=== PATIENT | female | born 1950 | race Caucasian/White ===

== ENCOUNTER → 2017-03-09 | Outpatient (CLI) | payer MEDICARE | END | disposition home or self-care (01) | LOC: RAD 10:33 | DX: Z13.820 Encounter for screening for osteoporosis (principal); M85.80 Other specified disorders of bone density and structure, unspecified site; N95.9 Unspecified menopausal and perimenopausal disorder ==

== ENCOUNTER → 2019-07-04 | Outpatient (CLI) | payer MEDICARE ==
[2019-07-04 10:46] LABS: BASO % 0.6 % (0.0-1.0); EOS # 0.1 10*3/uL (0.0-0.4); EOS % 1.7 % (1.0-4.0); HEMATOCRIT 45.5 % (37.0-47.0); HEMOGLOBIN 15.1 g/dl (12.0-16.0); LYMPH # 1.8 10*3/uL (1.3-4.4); LYMPH % 24.6 % (27.0-41.0); MEAN CELL VOLUME 90.5 fl (81.0-99.0); MEAN CORPUSCULAR HGB CONC 33.2 g/dl (33.0-37.0); MEAN PLATELET VOLUME 8.2 fl (9.6-12.3); MONO # 0.5 10*3/uL (0.1-1.0); MONO % 6.4 % (3.0-9.0); NEUT # 4.7 10*3/uL (2.3-7.9); NEUT % 66.3 % (47.0-73.0); PLATELET COUNT AUTOMATED 336 10*3/uL (130-400); RED BLOOD COUNT 5.03 10*6/uL (4.10-5.10); RED CELL DISTRI WIDTH 13.1 % (0-14.5); WHITE BLOOD COUNT 7.2 10*3/uL (4.8-10.8)
[2019-07-04 11:12] LABS: ALBUMIN 3.9 gm/dl (3.1-4.5); BUN 13 mg/dl (7-24); CHLORIDE 108 mmol/L (98-107); CHOLESTEROL 219 mg/dL (<200); CREATININE 1.04 mg/dL (0.55-1.02); HDL CHOLESTEROL 60 mg/dl (40-60); LDL CHOLESTEROL 130 mg/dL (9-159); POTASSIUM 4.2 mmol/L (3.5-5.1); SGOT/AST 31 IU/L (3-35); SGPT/ALT 33 U/L (12-78); SODIUM 139 mmol/L (136-145); TOTAL PROTEIN 7.8 gm/dL (6.4-8.2); TRIGLYCERIDES 145 mg/dl (<150); VLDL CHOLESTEROL 29 mg/dL (6-40)
[2019-07-04 11:18] LABS: ALKALINE PHOSPHATASE 89 U/L (45-117); FREE T4 0.71 ng/dl (0.76-1.46)
[2019-07-04 11:20] LABS: VITAMIN D, 25-HYDROXY 22.4 ng/mL (30-100)
== END | disposition home or self-care (01) ==
LOC: RAD 10:19
PROVIDERS: Internal Medicine
DX: M81.0 Age-related osteoporosis without current pathological fracture (principal); E78.2 Mixed hyperlipidemia; I10 Essential (primary) hypertension; E55.9 Vitamin D deficiency, unspecified; D52.9 Folate deficiency anemia, unspecified; D51.0 Vitamin B12 deficiency anemia due to intrinsic factor deficiency; Z78.0 Asymptomatic menopausal state

== ENCOUNTER 2022-03-21 09:34 | Emergency (ER) | payer OTHER ==
[2022-03-21] MEDS ORDERED: ALPRAZOLAM0.25 M2 PO (10:05)
[2022-03-21] MEDS ORDERED: DULOXETINE HCL60 MG PO (10:05)
[2022-03-21] MEDS ORDERED: BUSPIRONE HCL10 MG PO (10:05)
[2022-03-21 10:37] LABS: BASO % 0.2 % (0.0-1.0); EOS % 0.1 % (1.0-4.0); HEMATOCRIT 44.9 % (37.0-47.0); LYMPH # 1.4 10*3/uL (1.3-4.4); LYMPH % 12.4 % (27.0-41.0); MEAN CELL VOLUME 87.5 fl (81.0-99.0); MEAN CORPUSCULAR HGB CONC 34.3 g/dl (33.0-37.0); MEAN PLATELET VOLUME 8.3 fl (9.6-12.3); MONO # 0.6 10*3/uL (0.1-1.0); MONO % 4.9 % (3.0-9.0); NEUT # 9.2 10*3/uL (2.3-7.9); NEUT % 82.1 % (47.0-73.0); PLATELET COUNT AUTOMATED 358 10*3/uL (130-400); RED BLOOD COUNT 5.13 10*6/uL (4.10-5.10); RED CELL DISTRI WIDTH 12.8 % (0-14.5); WHITE BLOOD COUNT 11.2 10*3/uL (4.8-10.8)
[2022-03-21 10:48] LABS: ACT PARTIAL THROMBO TIME 29.6 SECONDS (20.0-32.1)
[2022-03-21 11:02] LABS: BUN 19 mg/dl (7-24); CHLORIDE 108 mmol/L (98-107); LIPASE 215 U/L (73-393); POTASSIUM 4.1 mmol/L (3.5-5.1); SODIUM 139 mmol/L (136-145)
[2022-03-21 11:05] LABS: ALKALINE PHOSPHATASE 71 U/L (45-117); CREATININE 0.97 mg/dL (0.55-1.02); SGOT/AST 21 IU/L (3-35); SGPT/ALT 21 U/L (12-78); TOTAL PROTEIN 7.1 gm/dL (6.4-8.2)
[2022-03-21] MEDS ORDERED: ATIVAN1 MG PO (15:25)
== END 2022-03-21 15:39 | disposition home or self-care (01) ==
LOC: ED 09:34
PROVIDERS: Emergency Medicine
DX: F41.9 Anxiety disorder, unspecified (principal); Z90.89 Acquired absence of other organs

== ENCOUNTER 2022-03-25 10:33 | Inpatient (IN) | payer MEDICARE, OTHER ==
[~2022-03-25] VITALS: Ht 170.1 cm; Wt 81.6 kg
[~2022-03-25 10:33] MED LIST: ALPRAZOLAM0.25 M2 PO; ATIVAN1 MG PO; BUSPIRONE HCL10 MG PO; DULOXETINE HCL60 MG PO
[2022-03-25 11:05] VITALS: BP 134/93
[2022-03-25 11:30] VITALS: BP 134/68
[2022-03-25 12:18] LABS: BASO % 0.3 % (0.0-1.0); EOS % 0.2 % (1.0-4.0); HEMATOCRIT 45.2 % (37.0-47.0); LYMPH # 1.9 10*3/uL (1.3-4.4); MEAN CELL VOLUME 86.9 fl (81.0-99.0); MEAN CORPUSCULAR HGB 29.4 pg (27.0-31.0); MEAN CORPUSCULAR HGB CONC 33.8 g/dl (33.0-37.0); MONO # 0.5 10*3/uL (0.1-1.0); MONO % 5.4 % (3.0-9.0); NEUT # 6.9 10*3/uL (2.3-7.9); NEUT % 73.8 % (47.0-73.0); PLATELET COUNT AUTOMATED 352 10*3/uL (130-400); RED CELL DISTRI WIDTH 12.9 % (0-14.5); WHITE BLOOD COUNT 9.4 10*3/uL (4.8-10.8)
[2022-03-25 12:34] LABS: ALKALINE PHOSPHATASE 71 U/L (45-117); BUN 14 mg/dl (7-24); CHLORIDE 107 mmol/L (98-107); CREATININE 0.93 mg/dL (0.55-1.02); POTASSIUM 4.2 mmol/L (3.5-5.1); SGOT/AST 14 IU/L (3-35); SGPT/ALT 22 U/L (12-78); SODIUM 139 mmol/L (136-145); TOTAL PROTEIN 7.1 gm/dL (6.4-8.2)
[2022-03-25 13:15] LABS: BILIRUBIN Negative (Negative); BLOOD Negative (Negative); NITRITE Negative (Negative)
[2022-03-25 13:28] LABS: CLARITY Clear (Clear); COLOR Yellow (Yellow); GLUCOSE Negative (Negative); KETONE Negative (Negative); LEUKO ESTERASE Trace (Negative); SPECIFIC GRAVITY <= 1.005 (1.001-1.030); UROBILINOGEN 0.2 E.U./dl (0.0-1.0)
[2022-03-25 13:38] LABS: PH 8.5 (4.5-8.0)
[2022-03-25 13:40] LABS: RBC 0-2 rbc/hpf (0-2)
[2022-03-25 20:00] VITALS: BP 140/88
[2022-03-26 06:05] LABS: BUN 14 mg/dl (7-24); CHLORIDE 110 mmol/L (98-107); CHOLESTEROL 160 mg/dL (<200); CREATININE 0.83 mg/dL (0.55-1.02); POTASSIUM 4.4 mmol/L (3.5-5.1); SGOT/AST 16 IU/L (3-35); SGPT/ALT 20 U/L (12-78); SODIUM 142 mmol/L (136-145); TRIGLYCERIDES 67 mg/dl (<150)
[2022-03-26 06:06] LABS: ALKALINE PHOSPHATASE 64 U/L (45-117); LDL CHOLESTEROL 91 mg/dL (9-159); TOTAL PROTEIN 6.4 gm/dL (6.4-8.2)
[2022-03-26 20:00] VITALS: BP 134/86
[2022-03-27 08:14] LABS: VITAMIN D, 25-HYDROXY 50.8 ng/mL (30-100)
[2022-03-27 20:00] VITALS: BP 133/80
[2022-03-28 07:21] VITALS: BP 127/78
[2022-03-28] MEDS ORDERED: REFRESH TEARS15 ML OP (13:43)
[2022-03-28 20:00] VITALS: BP 132/72
[2022-03-29 07:20] VITALS: BP 144/85
[2022-03-29 19:17] VITALS: BP 138/90
[2022-03-30 07:17] VITALS: BP 137/82
[2022-03-30 20:00] VITALS: BP 138/72
[2022-03-31 07:00] VITALS: BP 126/60
[2022-03-31 20:00] VITALS: BP 136/86
[2022-04-01 07:26] VITALS: BP 122/68
[2022-04-01 20:00] VITALS: BP 132/78
[2022-04-02 07:49] VITALS: BP 129/79
[2022-04-02 20:00] VITALS: BP 145/87
[2022-04-03 07:29] VITALS: BP 145/98
[2022-04-03 20:00] VITALS: BP 141/82
[2022-04-04 07:24] VITALS: BP 125/67
[2022-04-04] MEDS ORDERED: PRISTIQ100 MG PO (08:40)
[2022-04-04] MEDS ORDERED: CLONAZEPAM1 MG PO (08:40)
== END 2022-04-04 12:38 | disposition home or self-care (01) | DRG 885 ==
LOC: ED 10:33 → 3N 18:16
PROVIDERS: Internal Medicine; Registered Nurse; ADMIT Psychiatry & Neurology Psychiatry; ATTEND Psychiatry & Neurology Psychiatry
DX: F33.3 Major depressive disorder, recurrent, severe with psychotic symptoms (principal); Z20.822 Contact with and (suspected) exposure to COVID-19; M81.0 Age-related osteoporosis without current pathological fracture; F41.1 Generalized anxiety disorder; E78.2 Mixed hyperlipidemia; F43.10 Post-traumatic stress disorder, unspecified

== ENCOUNTER 2022-04-18 16:29 | Emergency (ER) | payer MEDICARE, OTHER ==
[~2022-04-18 16:29] MED LIST changes: +CLONAZEPAM1 MG PO; +PRISTIQ100 MG PO; +REFRESH TEARS15 ML OP
[2022-04-18 18:13] LABS: BASO % 0.4 % (0.0-1.0); EOS # 0.1 10*3/uL (0.0-0.4); HEMATOCRIT 45.1 % (37.0-47.0); LYMPH # 1.9 10*3/uL (1.3-4.4); LYMPH % 18.8 % (27.0-41.0); MEAN CELL VOLUME 87.2 fl (81.0-99.0); MEAN CORPUSCULAR HGB 29.6 pg (27.0-31.0); MEAN CORPUSCULAR HGB CONC 33.9 g/dl (33.0-37.0); MEAN PLATELET VOLUME 8.2 fl (9.6-12.3); MONO # 0.7 10*3/uL (0.1-1.0); MONO % 6.6 % (3.0-9.0); NEUT # 7.4 10*3/uL (2.3-7.9); PLATELET COUNT AUTOMATED 368 10*3/uL (130-400); RED BLOOD COUNT 5.17 10*6/uL (4.10-5.10); WHITE BLOOD COUNT 10.2 10*3/uL (4.8-10.8)
[2022-04-18 18:29] LABS: ACETAMINOPHEN (TYLENOL) < 5.0 ug/ml (10-30); ALKALINE PHOSPHATASE 85 U/L (45-117); BUN 14 mg/dl (7-24); CHLORIDE 108 mmol/L (98-107); CREATININE 0.93 mg/dL (0.55-1.02); SGOT/AST 24 IU/L (3-35); SGPT/ALT 24 U/L (12-78); SODIUM 138 mmol/L (136-145); TOTAL PROTEIN 7.5 gm/dL (6.4-8.2)
[2022-04-18 18:39] LABS: BILIRUBIN Negative (Negative); BLOOD 1+ (Negative); CLARITY Cloudy (Clear); COLOR Yellow (Yellow); GLUCOSE Negative (Negative); KETONE Negative (Negative); LEUKO ESTERASE 2+ (Negative); NITRITE Negative (Negative); PH 6.5 (4.5-8.0); UROBILINOGEN 0.2 E.U./dl (0.0-1.0)
[2022-04-18 18:47] LABS: URINE AMPHETAMINES < 1000 (1000ng/ml); URINE BARBITURATES < 200 (200ng/ml); URINE BENZODIAZEPINES > 200 (200ng/ml); URINE CANNABINOIDS (THC) < 50 (50ng/ml); URINE COCAINE < 300 (300ng/ml); URINE METHADONE < 300 (300ng/ml); URINE OPIATES < 300 (300ng/ml)
[2022-04-18 18:48] LABS: URINE PHENCYCLIDINE < 25 (25ng/ml)
[2022-04-18 18:51] LABS: BACTERIA 3+; HYALINE CAST 0-2
[2022-04-19] MEDS ORDERED: LOVASTATIN40 MG PO (14:05)
== END 2022-04-19 07:57 | disposition home or self-care (01) ==
LOC: ED 16:29
PROVIDERS: Physician Assistant
DX: F41.9 Anxiety disorder, unspecified (principal); Z20.822 Contact with and (suspected) exposure to COVID-19

== ENCOUNTER 2022-04-19 07:24 | Inpatient (IN) | payer MEDICARE, OTHER ==
[~2022-04-19] VITALS: Ht 170.1 cm; Wt 80.7 kg
[2022-04-19 08:00] VITALS: BP 133/84
[2022-04-19 09:22] VITALS: BP 133/84
[2022-04-19 11:02] LABS: THYROID STIM HORMONE (HS) 1.46 uIU/ml (0.358-4.75)
[2022-04-19 12:02] LABS: VITAMIN D, 25-HYDROXY 43.8 ng/mL (30-100)
[2022-04-19] MEDS ORDERED: LOVASTATIN40 MG PO (14:05)
[2022-04-19 19:11] VITALS: BP 139/82
[2022-04-20 08:00] VITALS: BP 116/83
[2022-04-20 20:00] VITALS: BP 132/71
[2022-04-21 07:09] VITALS: BP 126/82
[2022-04-21 20:00] VITALS: BP 145/75
[2022-04-22 07:24] VITALS: BP 135/74
[2022-04-22 20:00] VITALS: BP 135/74
[2022-04-23 08:00] VITALS: BP 119/84
[2022-04-23 20:14] VITALS: BP 128/63
[2022-04-24 07:05] VITALS: BP 113/63
[2022-04-24 08:41] LABS: BILIRUBIN Negative (Negative); BLOOD Trace-Lysed (Negative); CLARITY Cloudy (Clear); COLOR Yellow (Yellow); GLUCOSE Negative (Negative); KETONE Negative (Negative); LEUKO ESTERASE 2+ (Negative); NITRITE Negative (Negative); PH 6.5 (4.5-8.0); SPECIFIC GRAVITY 1.015 (1.001-1.030); UROBILINOGEN 0.2 E.U./dl (0.0-1.0)
[2022-04-24 09:06] LABS: BACTERIA 2+; EPITHELIAL CELLS 21-30; WBC 16-20 wbc/hpf (0-5)
[2022-04-24 20:00] VITALS: BP 137/91
[2022-04-25 07:37] VITALS: BP 128/61
[2022-04-25 19:47] VITALS: BP 134/70
[2022-04-26 07:14] VITALS: BP 122/75
[2022-04-26] MEDS ORDERED: KENALOG 0.1% LO60 ML T (15:09)
[2022-04-26 20:06] VITALS: BP 147/47
[2022-04-26 20:07] LABS: CLONAZEPAM (KLONOPIN),SERUM 20 ng/mL (20-70)
[2022-04-27 08:00] VITALS: BP 104/56
[2022-04-27 20:00] VITALS: BP 137/76
[2022-04-28 08:00] VITALS: BP 144/83
[2022-04-28 20:00] VITALS: BP 146/71
[2022-04-29 07:50] VITALS: BP 133/77
[2022-04-29 20:00] VITALS: BP 130/77
[2022-04-30 06:59] VITALS: BP 124/60
[2022-04-30 20:17] VITALS: BP 140/76
[2022-05-01 08:00] VITALS: BP 120/85
[2022-05-01 20:06] VITALS: BP 130/67
[2022-05-02 07:18] VITALS: BP 137/86
[2022-05-02 20:00] VITALS: BP 124/67
[2022-05-03 07:34] VITALS: BP 126/59
[2022-05-03 20:00] VITALS: BP 130/74
[2022-05-04 08:00] VITALS: BP 132/61
[2022-05-04] MEDS ORDERED: DEPLIN-ALGAL O1 EACH PO (09:19)
[2022-05-04] MEDS ORDERED: QUETIAPINE FUMA25 MG PO (09:19)
[2022-05-04] MEDS ORDERED: CLONAZEPAM1 MG PO (09:19)
[2022-05-04] MEDS ORDERED: PRISTIQ50 MG PO (09:19)
== END 2022-05-04 13:30 | disposition home or self-care (01) | DRG 885 ==
LOC: 3N 07:24
PROVIDERS: ADMIT Psychiatry & Neurology Psychiatry; ATTEND Psychiatry & Neurology Psychiatry
DX: F33.2 Major depressive disorder, recurrent severe without psychotic features (principal); F43.10 Post-traumatic stress disorder, unspecified; E78.2 Mixed hyperlipidemia; F41.1 Generalized anxiety disorder; M81.0 Age-related osteoporosis without current pathological fracture; F42.9 Obsessive-compulsive disorder, unspecified; F41.0 Panic disorder [episodic paroxysmal anxiety]

== ENCOUNTER → 2022-07-24 | Outpatient (CLI) | payer MEDICARE, OTHER ==
[~2022-07-24] MED LIST changes: +DEPLIN-ALGAL O1 EACH PO; +KENALOG 0.1% LO60 ML T; +LOVASTATIN40 MG PO; +PRISTIQ50 MG PO; +QUETIAPINE FUMA25 MG PO
== END | disposition home or self-care (01) ==
LOC: LAB 10:19
PROVIDERS: ATTEND Internal Medicine
DX: R73.09 Other abnormal glucose (principal)

== ENCOUNTER → 2022-07-26 | Outpatient (CLI) | payer MEDICARE, OTHER | END | disposition home or self-care (01) | LOC: LAB 10:15 | PROVIDERS: ATTEND Internal Medicine | DX: E61.1 Iron deficiency (principal); R73.09 Other abnormal glucose ==

== ENCOUNTER → 2022-09-11 | Outpatient (CLI) | payer MEDICARE, OTHER ==
[~2022-09-11] MED LIST changes: +ASPIR-TRIN325 MG PO; +EFFEXOR XR37.5 MG PO; +NATURE'S BLEND F1 MG PO; +XARE15TA PO
[2022-09-11 11:17] LABS: BASO % 0.6 % (0.0-1.0); EOS # 0.1 10*3/uL (0.0-0.4); EOS % 2.1 % (1.0-4.0); HEMATOCRIT 36.2 % (37.0-47.0); LYMPH # 1.3 10*3/uL (1.3-4.4); LYMPH % 24.5 % (27.0-41.0); MEAN CELL VOLUME 78.5 fl (81.0-99.0); MEAN CORPUSCULAR HGB 22.1 pg (27.0-31.0); MEAN CORPUSCULAR HGB CONC 28.2 g/dl (33.0-37.0); MONO # 0.4 10*3/uL (0.1-1.0); MONO % 7.9 % (3.0-9.0); NEUT # 3.4 10*3/uL (2.3-7.9); NEUT % 64.7 % (47.0-73.0); PLATELET COUNT AUTOMATED 438 10*3/uL (130-400); RED BLOOD COUNT 4.61 10*6/uL (4.10-5.10); RED CELL DISTRI WIDTH 21.6 % (0-14.5); WHITE BLOOD COUNT 5.3 10*3/uL (4.8-10.8)
== END | disposition home or self-care (01) ==
LOC: LAB 10:48
PROVIDERS: ATTEND Internal Medicine
DX: D50.9 Iron deficiency anemia, unspecified (principal); R53.81 Other malaise; D50.8 Other iron deficiency anemias; Z13.0 Encounter for screening for diseases of the blood and blood-forming organs and certain disorders involving the immune mechanism; Z13.1 Encounter for screening for diabetes mellitus; Z13.220 Encounter for screening for lipoid disorders; Z13.228 Encounter for screening for other metabolic disorders; Z13.29 Encounter for screening for other suspected endocrine disorder; Z13.6 Encounter for screening for cardiovascular disorders; Z13.89 Encounter for screening for other disorder; Z13.9 Encounter for screening, unspecified

== ENCOUNTER → 2022-10-03 | Outpatient (CLI) | payer MEDICARE, OTHER ==
[~2022-10-03] MED LIST changes: +FEOSOL325 MG PO
[2022-10-03 09:21] VITALS: BP 109/58
== END | disposition home or self-care (01) ==
LOC: INJECTION 09:05
PROVIDERS: ATTEND Internal Medicine
DX: M81.0 Age-related osteoporosis without current pathological fracture (principal); K21.9 Gastro-esophageal reflux disease without esophagitis; M19.90 Unspecified osteoarthritis, unspecified site; F41.9 Anxiety disorder, unspecified; F32.A Depression, unspecified; Z98.890 Other specified postprocedural states

== ENCOUNTER → 2022-10-26 | Outpatient (CLI) | payer MEDICARE, OTHER | END | disposition home or self-care (01) | LOC: US 01:07 | PROVIDERS: ATTEND Internal Medicine | DX: I82.503 Chronic embolism and thrombosis of unspecified deep veins of lower extremity, bilateral (principal); Z79.01 Long term (current) use of anticoagulants ==

== ENCOUNTER → 2023-04-02 | Outpatient (CLI) | payer MEDICARE, OTHER | END | disposition home or self-care (01) | LOC: INJECTION 01:16 | PROVIDERS: ATTEND Internal Medicine | DX: M81.0 Age-related osteoporosis without current pathological fracture (principal); K21.9 Gastro-esophageal reflux disease without esophagitis; F41.9 Anxiety disorder, unspecified; F32.A Depression, unspecified; M19.90 Unspecified osteoarthritis, unspecified site ==

== ENCOUNTER → 2023-04-28 | Outpatient (CLI) | payer MEDICARE, OTHER | END | disposition home or self-care (01) | LOC: US 00:11 | PROVIDERS: ATTEND Internal Medicine | DX: R22.42 Localized swelling, mass and lump, left lower limb (principal); Z79.01 Long term (current) use of anticoagulants ==

== ENCOUNTER → 2023-09-26 | Outpatient (CLI) | payer MEDICARE, OTHER ==
[2023-09-26 08:51] LABS: BASO % 0.4 % (0.0-1.0); EOS # 0.1 10*3/uL (0.0-0.4); EOS % 1.6 % (1.0-4.0); HEMATOCRIT 46.7 % (37.0-47.0); LYMPH # 1.1 10*3/uL (1.3-4.4); LYMPH % 19.6 % (27.0-41.0); MEAN CELL VOLUME 93.2 fl (81.0-99.0); MEAN CORPUSCULAR HGB 29.9 pg (27.0-31.0); MEAN CORPUSCULAR HGB CONC 32.1 g/dl (33.0-37.0); MEAN PLATELET VOLUME 8.4 fl (9.6-12.3); MONO # 0.3 10*3/uL (0.1-1.0); NEUT # 4.1 10*3/uL (2.3-7.9); NEUT % 72.2 % (47.0-73.0); PLATELET COUNT AUTOMATED 326 10*3/uL (130-400); RED BLOOD COUNT 5.01 10*6/uL (4.10-5.10); RED CELL DISTRI WIDTH 13.2 % (0-14.5); WHITE BLOOD COUNT 5.7 10*3/uL (4.8-10.8)
[2023-09-26 09:48] LABS: ALKALINE PHOSPHATASE 75 U/L (46-116); BUN 10 mg/dl (9-23); CHLORIDE 108 mmol/L (98-107); CHOLESTEROL 192 mg/dL (<200); FREE T4 0.99 ng/dl (0.89-1.76); LDL CHOLESTEROL 107 mg/dL (9-159); POTASSIUM 3.8 mmol/L (3.4-5.1); SGPT/ALT 21 U/L (5-49); TOTAL PROTEIN 7.1 gm/dL (6.0-8.0); TRIGLYCERIDES 117 mg/dl (<150)
[2023-09-26 09:50] LABS: VITAMIN D, 25-HYDROXY 36.5 ng/mL (30-100)
== END | disposition home or self-care (01) ==
LOC: LAB 08:32
PROVIDERS: ATTEND Internal Medicine
DX: Z13.1 Encounter for screening for diabetes mellitus (principal); Z13.0 Encounter for screening for diseases of the blood and blood-forming organs and certain disorders involving the immune mechanism; Z13.21 Encounter for screening for nutritional disorder; Z13.220 Encounter for screening for lipoid disorders; Z13.228 Encounter for screening for other metabolic disorders; Z13.29 Encounter for screening for other suspected endocrine disorder; Z13.6 Encounter for screening for cardiovascular disorders; Z13.89 Encounter for screening for other disorder; Z13.9 Encounter for screening, unspecified; I10 Essential (primary) hypertension; E78.2 Mixed hyperlipidemia; E55.9 Vitamin D deficiency, unspecified

== ENCOUNTER → 2023-10-04 | Outpatient (CLI) | payer MEDICARE, OTHER ==
[2023-10-04 10:35] VITALS: BP 139/70
== END | disposition home or self-care (01) ==
LOC: INJECTION 01:12
PROVIDERS: ATTEND Internal Medicine
DX: M81.0 Age-related osteoporosis without current pathological fracture (principal); K21.9 Gastro-esophageal reflux disease without esophagitis; M19.90 Unspecified osteoarthritis, unspecified site; F41.9 Anxiety disorder, unspecified; F32.A Depression, unspecified

== ENCOUNTER 2023-10-30 10:14 | Emergency (ER) | payer MEDICARE, OTHER ==
[~2023-10-30] VITALS: Ht 170.1 cm; Wt 85.3 kg
[2023-10-30] MEDS ORDERED: CYCLOBENZAPRINE5 M3 PO (12:19)
[2023-10-30] MEDS ORDERED: methylPREDNISolone acetate 40 MG/ML VIAL IM ONE (12:20)
== END 2023-10-30 12:30 | disposition home or self-care (01) ==
LOC: ED 10:14
DX: M62.838 Other muscle spasm (principal); I10 Essential (primary) hypertension; F41.9 Anxiety disorder, unspecified; F32.A Depression, unspecified; E78.5 Hyperlipidemia, unspecified; K21.9 Gastro-esophageal reflux disease without esophagitis; Z90.89 Acquired absence of other organs; Z98.890 Other specified postprocedural states

== ENCOUNTER → 2024-04-29 | Outpatient (CLI) | payer MEDICARE, OTHER ==
[~2024-04-29] MED LIST changes: +CYCLOBENZAPRINE5 M3 PO; +DENOSUMAB 60 MG/ML SYRINGE SC ONE
[2024-04-29 09:15] VITALS: BP 137/69
== END | disposition home or self-care (01) ==
LOC: INJECTION 04-18 09:00
PROVIDERS: ATTEND Internal Medicine
DX: M81.0 Age-related osteoporosis without current pathological fracture (principal); K21.9 Gastro-esophageal reflux disease without esophagitis; M19.90 Unspecified osteoarthritis, unspecified site; F41.9 Anxiety disorder, unspecified; F32.A Depression, unspecified

== ENCOUNTER → 2024-07-14 | Outpatient (CLI) | payer MEDICARE, OTHER ==
[~2024-07-14] MED LIST changes: -DENOSUMAB 60 MG/ML SYRINGE SC ONE
== END | disposition home or self-care (01) ==
LOC: RAD 01:51
PROVIDERS: ATTEND Internal Medicine
DX: M81.0 Age-related osteoporosis without current pathological fracture (principal)

== ENCOUNTER → 2024-10-30 | Outpatient (CLI) | payer MEDICARE, OTHER ==
[~2024-10-30] MED LIST changes: +DENOSUMAB 60 MG/ML SYRINGE SC ONE; +LORAZEPAM1 MG PO; +VITAMIN C250 M2 PO
[2024-10-30 10:17] VITALS: BP 125/78
== END | disposition home or self-care (01) ==
LOC: INJECTION 01:36
PROVIDERS: ATTEND Internal Medicine
DX: M81.0 Age-related osteoporosis without current pathological fracture (principal); F41.9 Anxiety disorder, unspecified; F33.40 Major depressive disorder, recurrent, in remission, unspecified

== ENCOUNTER → 2025-08-10 | Outpatient (CLI) | payer MEDICARE, OTHER | LOC: INJECTION 01:26 | PROVIDERS: ATTEND Internal Medicine | DX: M81.0 Age-related osteoporosis without current pathological fracture (principal); F41.9 Anxiety disorder, unspecified; F32.A Depression, unspecified; K21.9 Gastro-esophageal reflux disease without esophagitis; Z90.89 Acquired absence of other organs ==